=== PATIENT | female | born 1950 | race American Indian/Alaskan Native ===

== ENCOUNTER 2019-06-14 13:35 | Emergency (ER) | payer MEDICAID ==
[2019-06-14 14:02] VITALS: BP 115/83
--- NOTE | 2019-06-14 15:34 | Emergency Department Report ---
ED General Adult HPI - General Chief complaint: Medical Clearance Stated complaint: KNEE SWELLING/PAIN/SHERLEY Time Seen by Provider: 06/14/19 15:19 Source: patient Mode of arrival: Ambulatory Limitations: No Limitations - History of Present Illness Initial comments: Patient is 69 years old female with history of schizophrenia and hypertension. Patient stated that she just came back from [place]. She stated that she does not like [place] because of lizard. Patient is complaining of bilateral knee pain for the last 2 month. Patient also stated that she is out of her Seroquel. Patient does not have a psychiatric doctor in [place]. Patient denied any suicidal or homicidal ideation. Patient stated that she is hearing voices but not really bad. Patient does not meet any criteria for involuntary hold. - Related Data Previous Rx's Medication Instructions Recorded Last Taken Type hydroCHLOROthiazide [HCTZ] 12.5 mg PO QDAY #31 capsule 09/29/15 09/28/15 Rx Famotidine [Pepcid] 20 mg PO BID #60 tablet 10/03/15 Unknown Rx traMADol [Ultram 50 MG tab] 50 mg PO Q6HR PRN #20 tablet 10/03/15 Unknown Rx Allergies Allergy/AdvReac Type Severity Reaction Status Date / Time iodine Allergy Unknown Verified 06/14/19 13:40 ED Review of Systems ROS: Stated complaint: KNEE SWELLING/PAIN/SHERLEY Other details as noted in HPI Comment: All other systems reviewed and negative Constitutional: denies: chills, fever Respiratory: denies: cough, shortness of breath Cardiovascular: denies: chest pain, palpitations Gastrointestinal: denies: abdominal pain, nausea, vomiting Neurological: denies: headache, weakness, numbness, paresthesias, confusion, abnormal gait Psychiatric: denies: anxiety, depression, auditory hallucinations, visual hallucinations, homicidal thoughts, suicidal thoughts ED Past Medical Hx - Past Medical History Hx Hypertension: Yes Hx Congestive Heart Failure: No Hx Diabetes: No Hx Renal Disease: Yes Hx Asthma: Yes Hx COPD: No Additional medical history: insomnia - Surgical History Additional Surgical History: Hysterectomy - Social History Smoking Status: Current Every Day Smoker Substance Use Type: None - Medications Home Medications: Home Medications Medication Instructions Recorded Confirmed Last Taken Type hydroCHLOROthiazide [HCTZ] 12.5 mg PO QDAY #31 capsule 09/29/15 10/01/15 09/28/15 Rx Famotidine [Pepcid] 20 mg PO BID #60 tablet 10/03/15 Unknown Rx traMADol [Ultram 50 MG tab] 50 mg PO Q6HR PRN #20 tablet 10/03/15 Unknown Rx ED Physical Exam - General Limitations: No Limitations General appearance: alert, in no apparent distress - Head Head exam: Present: atraumatic, normocephalic, normal inspection - Eye Eye exam: Present: normal appearance, PERRL - ENT ENT exam: Present: normal exam, normal orophraynx, mucous membranes moist - Neck Neck exam: Present: normal inspection, full ROM. Absent: tenderness, meningismus, lymphadenopathy, thyromegaly - Respiratory Respiratory exam: Present: normal lung sounds bilaterally - Cardiovascular Cardiovascular Exam: Present: regular rate, normal rhythm, normal heart sounds - GI/Abdominal GI/Abdominal exam: Present: soft, normal bowel sounds. Absent: distended, tenderness, guarding, rebound, rigid, organomegaly, mass, bruit, pulsatile mass, hernia - Extremities Exam Extremities exam: Present: normal inspection, full ROM, normal capillary refill - Back Exam Back exam: Present: normal inspection, full ROM. Absent: CVA tenderness (R), CVA tenderness (L), muscle spasm, paraspinal tenderness, vertebral tenderness - Neurological Exam Neurological exam: Present: alert, oriented X3, CN II-XII intact, normal gait, reflexes normal - Psychiatric Psychiatric exam: Present: normal mood - Skin Skin exam: Present: warm, intact, normal color ED Course Vital Signs 06/14/19 14:01 Temperature 98.3 F Pulse Rate 105 H Respiratory 20 Rate Blood Pressure 115/83 O2 Sat by Pulse 98 Oximetry ED Medical Decision Making - Lab Data Result diagrams: 06/14/19 15:28 06/14/19 15:28 - Medical Decision Making Patient is 69 years old female with history of schizophrenia and hypertension. Patient stated that she just came back from [place]. She stated that she does not like [place] because of lizard. Patient is complaining of bilateral knee pain for the last 2 month. Patient also stated that she is out of her Seroquel. Patient does not have a psychiatric doctor in [place]. Patient denied any suicidal or homicidal ideation. Patient stated that she is hearing voices but not really bad. Patient does not meet any criteria for involuntary hold. Mental health evaluation requested the patient unfortunately does not want to wait. Patient is stable medically and psychiatrically for discharge. Critical care attestation.: If time is entered above; I have spent that time in minutes in the direct care of this critically ill patient, excluding procedure time. ED Disposition Clinical Impression: Schizophrenia, Osteoarthritis Disposition: DC-01 TO HOME OR SELFCARE Is pt being admited?: No Condition: Stable Instructions: Schizophrenia (ED), Osteoarthritis (ED) Referrals: [facility] [Provider Group] - 3-5 Days
[2019-06-14 15:45] LABS: Basophils # (Auto) 0.1 K/mm3 (0.0-0.1); Basophils % (Auto) 1.3 % (0.0-1.8); Eosinophils # (Auto) 0.1 K/mm3 (0.0-0.4); Eosinophils % (Auto) 1.8 % (0.0-4.3); Hematocrit 40.2 % (30.3-42.9); Hemoglobin 13.1 gm/dl (10.1-14.3); Lymphocytes # (Auto) 3.7 K/mm3 (1.2-5.4); Lymphocytes % (Auto) 49.1 % (13.4-35.0); Mean Corpuscular HGB Conc 33 % (30-34); Mean Corpuscular Volume 86 fl (79-97); Monocytes % (Auto) 12.6 % (0.0-7.3); Platelet Count 315 K/mm3 (140-440); Red Blood Count 4.67 M/mm3 (3.65-5.03)
[2019-06-14 16:06] LABS: BUN/Creatinine Ratio 22; Blood Urea Nitrogen 20 mg/dL (7-17); Calcium 9.6 mg/dL (8.4-10.2); Hemolysis Index 40
[2019-06-14 16:35] LABS: Bilirubin,Urine NEG (Negative); Blood,Urine NEG (Negative); Color,Urine Yellow (Yellow); Protein,Urine <15 mg/dL mg/dL (Negative); Urobilinogen,Urine < 2.0 mg/dL (<2.0)
[2019-06-14 16:51] LABS: Amphetamine Screen,Urine PRESUMPTIVE NEGATIVE; Benzodiazepines Screen,Urine PRESUMPTIVE NEGATIVE; Cannabinoid Screen,Urine PRESUMPTIVE NEGATIVE; Cocaine Screen,Urine PRESUMPTIVE NEGATIVE; Methadone Screen,Urine PRESUMPTIVE NEGATIVE; Opiate Screen,Urine PRESUMPTIVE NEGATIVE
== END 2019-06-14 18:28 | disposition home or self-care (01) ==
LOC: ED 13:35
DX: M17.0 Bilateral primary osteoarthritis of knee (principal); F20.9 Schizophrenia, unspecified; J44.9 Chronic obstructive pulmonary disease, unspecified; F17.200 Nicotine dependence, unspecified, uncomplicated; Z90.710 Acquired absence of both cervix and uterus
CPT/HCPCS: 36415; 80048; 80307; 80320; 81001; 85025; G0480

== ENCOUNTER 2019-07-10 10:25 | Emergency (ER) | payer MEDICARE ==
--- NOTE | 2019-07-10 13:25 | Emergency Department Report ---
ED General Adult HPI - General Chief complaint: Upper Respiratory Infection Stated complaint: KNEE PAIN/HEART BEAT SKIP Time Seen by Provider: 07/10/19 12:39 Source: patient Mode of arrival: Ambulatory Limitations: No Limitations - History of Present Illness Initial comments: 69-year-old -[place] female patient with history of schizophrenia and hypertension presents today with complaints of cough and congestion for the past 2 days, bilateral knee pain, and intermittent panic attacks for a week. She states she has been out of her Seroquel due to not having a primary care physician. She is requesting a refill of this to prevent her panic attacks. She admits to smoking, but denies history of asthma. She denies any fever, hemoptysis, shortness of breath, or chest pain. He reports cough is productive of yellow mucus. Patient is also requesting a refill of naproxen for her knee pain. He denies any new changes to the pain in her knees. She denies any suicidal or homicidal thoughts or current hallucinations - Related Data Previous Rx's Medication Instructions Recorded Last Taken Type Famotidine [Pepcid] 20 mg PO BID #60 tablet 10/03/15 Unknown Rx traMADoL [Ultram 50 MG tab] 50 mg PO Q6HR PRN #20 tablet 10/03/15 Unknown Rx Naproxen [Naprosyn TAB] 500 mg PO BID #14 tablet 07/10/19 Unknown Rx QUEtiapine [SEROquel] 100 mg PO QDAY #30 tab 07/10/19 Unknown Rx hydroCHLOROthiazide [HCTZ] 12.5 mg PO QDAY #31 capsule 07/10/19 Unknown Rx Allergies Allergy/AdvReac Type Severity Reaction Status Date / Time iodine Allergy Unknown Verified 06/14/19 13:40 ED Review of Systems ROS: Stated complaint: KNEE PAIN/HEART BEAT SKIP Other details as noted in HPI Comment: All other systems reviewed and negative Respiratory: see HPI Cardiovascular: denies: chest pain, palpitations, dyspnea on exertion, edema, syncope Musculoskeletal: as per HPI Psychiatric: anxiety ED Past Medical Hx - Past Medical History Hx Hypertension: Yes Hx Congestive Heart Failure: No Hx Diabetes: No Hx Renal Disease: Yes Hx Asthma: Yes Hx COPD: No Additional medical history: insomnia - Surgical History Additional Surgical History: Hysterectomy - Social History Smoking Status: Current Every Day Smoker Substance Use Type: None - Medications Home Medications: Home Medications Medication Instructions Recorded Confirmed Last Taken Type Famotidine [Pepcid] 20 mg PO BID #60 tablet 10/03/15 Unknown Rx traMADoL [Ultram 50 MG tab] 50 mg PO Q6HR PRN #20 tablet 10/03/15 Unknown Rx Naproxen [Naprosyn TAB] 500 mg PO BID #14 tablet 07/10/19 Unknown Rx QUEtiapine [SEROquel] 100 mg PO QDAY #30 tab 07/10/19 Unknown Rx hydroCHLOROthiazide [HCTZ] 12.5 mg PO QDAY #31 capsule 07/10/19 Unknown Rx ED Physical Exam - General Limitations: No Limitations General appearance: alert, in no apparent distress - Head Head exam: Present: atraumatic, normocephalic - Eye Eye exam: Present: normal appearance. Absent: scleral icterus - ENT ENT exam: Present: normal exam, normal orophraynx - Neck Neck exam: Present: normal inspection, full ROM. Absent: tenderness, lymphadenopathy - Respiratory Respiratory exam: Present: normal lung sounds bilaterally. Absent: respiratory distress, wheezes, rales, rhonchi, chest wall tenderness - Cardiovascular Cardiovascular Exam: Present: normal rhythm, tachycardia - GI/Abdominal GI/Abdominal exam: Present: soft. Absent: distended, tenderness - Extremities Exam Extremities exam: Absent: calf tenderness - Back Exam Back exam: Present: other (no tenderness, swelling, or erythema noted of the knees bilaterally) - Neurological Exam Neurological exam: Present: alert, oriented X3 - Psychiatric Psychiatric exam: Present: anxious (with mild flight of thoughts) - Skin Skin exam: Present: warm, dry, intact, normal color. Absent: rash ED Course Vital Signs 07/10/19 07/10/19 10:29 16:10 Temperature 98.1 F 98.3 F Pulse Rate 112 H 75 Respiratory 18 19 Rate Blood Pressure 115/76 Blood Pressure 156/83 [Left] O2 Sat by Pulse 96 97 Oximetry ED Medical Decision Making - Lab Data Result diagrams: 07/10/19 12:58 07/10/19 12:58 - Radiology Data Radiology results: report reviewed CHEST 2 VIEWS INDICATION / CLINICAL INFORMATION: cough. COMPARISON: 09/28/2015 FINDINGS: SUPPORT DEVICES: None. HEART / MEDIASTINUM: No significant abnormality. LUNGS / PLEURA: No interstitial or airspace disease. Linear densities have developed in the left lower lung consistent with subsegmental atelectasis. No pneumothorax. ADDITIONAL FINDINGS: No significant additional findings. IMPRESSION: 1. Subsegmental atelectasis in the left lower lobe. - Medical Decision Making 69-year-old -[place] female here with complaints of chronic bilateral knee pain and cough and congestion for the past 2 days. She denies fever/chills/sweats. Wbc's are WNL. Pulse ox is 96% on room air. Chest x-ray shows left lower lobe atelectasis. Patient is a smoker. She denies any shortness of breath or chest pain. Mild tachycardia notedpatient denies any recent long travel, leg pain or swelling (not including the knees), or history of DVT/PE. Anion gap noted to the 20. After 1 L bolus, patient's heart rate improved from 114 to 97. Incentive spirometer for home order. Discussed the importance of using the incentive spirometer to prevent pneumonia and also discussed in detail signs and symptoms of pneumonia that should prompt return to the EDpatient states understanding. Recommend follow-up with primary care. Critical care attestation.: If time is entered above; I have spent that time in minutes in the direct care of this critically ill patient, excluding procedure time. ED Disposition Clinical Impression: Atelectasis, left, Chronic pain of both knees, Dehydration Disposition: DC-01 TO HOME OR SELFCARE Is pt being admited?: No Condition: Stable Additional Instructions: Please increase your water intake by 3-4 glasses a day. Use the incentive spirometer at least 6 times a day for a period of 10 minutes per episode Return to the emergency department if he develops any new or worsening symptoms P Please follow up at [facility] for your Seroquel medication refills Prescriptions: hydroCHLOROthiazide [HCTZ] 12.5 mg PO QDAY #31 capsule Naproxen [Naprosyn TAB] 500 mg PO BID #14 tablet QUEtiapine [SEROquel] 100 mg PO QDAY #30 tab Referrals: [facility] [Provider Group] - 3-5 Days [facility] [Outside] - 3-5 Days
[2019-07-10 13:45] LABS: Hematocrit 43.5 % (30.3-42.9); Mean Corpuscular HGB Conc 32 % (30-34); Mean Corpuscular Volume 87 fl (79-97); Platelet Count 304 K/mm3 (140-440); Red Blood Count 5.02 M/mm3 (3.65-5.03); Red Cell Distribution Width 14.6 % (13.2-15.2)
--- NOTE | 2019-07-10 13:47 | XRay Report ---
CHEST 2 VIEWS INDICATION / CLINICAL INFORMATION: cough. COMPARISON: 09/28/2015 FINDINGS: SUPPORT DEVICES: None. HEART / MEDIASTINUM: No significant abnormality. LUNGS / PLEURA: No interstitial or airspace disease. Linear densities have developed in the left lowe r lung consistent with subsegmental atelectasis. No pneumothorax. ADDITIONAL FINDINGS: No significant additional findings. IMPRESSION: 1. Subsegmental atelectasis in the left lower lobe. Signer Name: Tj Beach MD Signed: 07/10/2019 1:42 PM Workstation Name: [id number]
[2019-07-10 14:01] LABS: Bilirubin,Urine NEG (Negative); Blood,Urine NEG (Negative); Color,Urine Yellow (Yellow); Mucus,Urine FEW /HPF; Protein,Urine <15 mg/dL mg/dL (Negative); Urobilinogen,Urine < 2.0 mg/dL (<2.0)
[2019-07-10 14:05] LABS: BUN/Creatinine Ratio 23; Blood Urea Nitrogen 21 mg/dL (7-17); Calcium 9.8 mg/dL (8.4-10.2); Hemolysis Index 4
[2019-07-10 14:06] LABS: Amphetamine Screen,Urine PRESUMPTIVE NEGATIVE; Benzodiazepines Screen,Urine PRESUMPTIVE NEGATIVE; Cannabinoid Screen,Urine PRESUMPTIVE NEGATIVE; Cocaine Screen,Urine PRESUMPTIVE NEGATIVE; Methadone Screen,Urine PRESUMPTIVE NEGATIVE; Opiate Screen,Urine PRESUMPTIVE NEGATIVE
[2019-07-10] MEDS ORDERED: NAPROXEN 500 MG TAB PO ONE (14:40)
[2019-07-10] MEDS ORDERED: SODIUM CHLORIDE 0.9% 1000 ML 1,000 ML IV ONE (15:39)
[2019-07-10 16:11] VITALS: BP 156/83
== END 2019-07-10 17:30 | disposition home or self-care (01) ==
LOC: ED 10:25
DX: J98.11 Atelectasis (principal); E86.0 Dehydration; M25.561 Pain in right knee; M25.562 Pain in left knee; G89.29 Other chronic pain; I10 Essential (primary) hypertension; J45.909 Unspecified asthma, uncomplicated; F17.200 Nicotine dependence, unspecified, uncomplicated; Z90.710 Acquired absence of both cervix and uterus; Z79.899 Other long term (current) drug therapy; Z91.041 Radiographic dye allergy status
CPT/HCPCS: 36415; 71046; 80048; 80307; 81001; 84484; 85027; 93005; 93010; 96360; 99284; J7030